=== PATIENT | male | born 1985 | race Caucasian/White ===

== ENCOUNTER 2016-12-08 14:09 | Emergency (ER) | payer SELFPAY | END 2016-12-08 16:00 | disposition home or self-care (01) | LOC: ER1 14:09 | DX: S29.011A Strain of muscle and tendon of front wall of thorax, initial encounter (principal); S46.912A Strain of unspecified muscle, fascia and tendon at shoulder and upper arm level, left arm, initial encounter; Z88.5 Allergy status to narcotic agent; Z88.8 Allergy status to other drugs, medicaments and biological substances; F17.290 Nicotine dependence, other tobacco product, uncomplicated; X50.0XXA Overexertion from strenuous movement or load, initial encounter; Y92.69 Other specified industrial and construction area as the place of occurrence of the external cause; Y99.0 Civilian activity done for income or pay | CPT/HCPCS: 71020; 73030; 99283 ==

== ENCOUNTER 2021-01-18 16:28 | Emergency (ER) | payer BC ==
[2021-01-18 17:44] LABS: HEMOGLOBIN 14.2 gm/dl (14.0-17.5); RED BLOOD COUNT 5.04 M/UL (4.20-5.50); WHITE BLOOD COUNT 10.9 K/UL (4.5-11.0)
[2021-01-18 18:35] LABS: BUN/CREATININE RATIO 11 (0-10)
[2021-01-20 22:09] LABS: AMPHETAMINES, URINE Negative ng/mL (Cutoff=1000); BARBITURATE Negative ng/mL (Cutoff=200); BENZODIAZEPINES Negative ng/mL (Cutoff=200); CANNABINOIDS Negative ng/mL (Cutoff=20); COCAINE (METABOLITE) Negative ng/mL (Cutoff=300); MEPERIDINE Negative ng/mL (Cutoff=200); METHADONE Negative ng/mL (Cutoff=300); OPIATES Negative ng/mL (Cutoff=300); PHENCYCLIDINE Negative ng/mL (Cutoff=25); PROPOXYPHENE Negative ng/mL (Cutoff=300)
== END 2021-01-19 | disposition short-term general hospital (02) ==
LOC: ER1 16:28
PROVIDERS: Family Medicine
DX: I26.99 Other pulmonary embolism without acute cor pulmonale (principal); Z20.822 Contact with and (suspected) exposure to COVID-19
CPT/HCPCS: 80053; 80307; 81001; 82550; 82553; 83874; 84484; 85025; 85379; 85610; 93005; 96374; 96375; 99285; J1644; J2405; Q9967; U0002

== ENCOUNTER 2021-06-30 22:17 | Emergency (ER) | payer BC ==
[2021-06-30 22:58] LABS: HEMOGLOBIN 15.9 gm/dl (14.0-17.5); RED BLOOD COUNT 5.41 M/UL (4.20-5.50); WHITE BLOOD COUNT 6.7 K/UL (4.5-11.0)
[2021-06-30 23:20] LABS: BUN/CREATININE RATIO 10 (0-10)
== END 2021-07-01 02:20 | disposition home or self-care (01) ==
LOC: ER1 22:17
PROVIDERS: Emergency Medicine
DX: R42 Dizziness and giddiness (principal); Z86.711 Personal history of pulmonary embolism
CPT/HCPCS: 71045; 80053; 82550; 82553; 83874; 84484; 85025; 85379; 93005; 99284; Q9967

== ENCOUNTER → 2022-02-22 | Outpatient (CLI) | payer BC | LOC: KOH-I 02-16 14:30 | DX: G89.4 Chronic pain syndrome (principal); M47.814 Spondylosis without myelopathy or radiculopathy, thoracic region | CPT/HCPCS: 72146 ==